=== PATIENT | female | born 1985 | race Caucasian/White ===

== ENCOUNTER 2021-11-02 07:37 | Inpatient (IN) ==
[2021-11-02] MEDS ORDERED: OXYTOCIN 30 UNITS/500 ML BAG IV PRN (07:43)
[2021-11-02 08:29] LABS: Hematocrit (blood only) 35.4 % (37-47); Hemoglobin 12.6 g/dL (12.0-16.0); Mean Corpuscular Hemoglobin 26.9 pg (25-34); Mean Corpuscular Hgb Conc 35.6 g/dL (32-36); Mean Corpuscular Volume 75.5 fL (80-100); Mean Platelet Volume 11.9 fL (7.4-10.4); Platelet Count 276 K/uL (130-400); RDW Coefficient of Variation 16.5 % (11.5-14.5); RDW Standard Deviation 45.1 fL (36.4-46.3); Red Blood Count 4.69 M/uL (4.2-5.4); White Blood Count 12.48 K/uL (4.8-10.8)
[2021-11-02] MEDS: LACTATED RINGER'S 1,000 ML IV PRN ×3 (08:40→22:02)
[2021-11-02] MEDS: OXYTOCIN 30 UNITS/500 ML BAG IV PRN (09:25)
--- NOTE | 2021-11-02 09:30 | History & Physical Report ---
Date of Service November 02, 2021 Assessment & Plan (1) Insulin controlled gestational diabetes mellitus (GDM) during : Plan: 36 y/o G1 at 40 wga presents for IOL for A2GDM VSS Fetus cat 1 Labor - will start pit GBS neg epidural PRN Admission and Anticipated Discharge Date Admission Date: November 02, 2021 History of Present Illness Chief Complaint: IOL Primary Care Provider: [facility] 36 y/o G1 at 42 wga w/ TIERRA 11/02 presents for IOL for A2GDM. +FM; denies regular ctx, LOF, VB. Had martinez bulb placed last evening but was difficult to do, remains in this AM PNI: A2GDM - 70u qHS Thyroid nodule BMI 37 Past [employer] Hx: G1 q28d cycles denies hx STIs 08/2020 neg cotest Allergies Allergy/AdvReac Type Severity Reaction Status Date / Time No Known Allergies Allergy Verified 11/01/21 13:52 Home Medications Medication Instructions Recorded Confirmed Type prenat.vits,hiro,ubv-qquv-tlytl 1 tab PO DAILY 03/03/21 11/02/21 History acetone (urine) test (Ketone Urine #50 ea 06/19/21 11/01/21 Rx Test) blood-glucose meter (OneTouch #1 ea 06/19/21 11/01/21 Rx Verio Reflect Meter) lancets 33 gauge (OneTouch Delica #150 ea 06/19/21 11/01/21 Rx Plus Lancet) pen needle, diabetic 32 gauge x #100 ea 08/18/21 11/01/21 Rx 5/32" (BD Ultra-Fine Ольга Pen Needle) blood sugar diagnostic (OneTouch #50 ea 10/27/21 11/01/21 Rx Verio test strips) insulin NPH isoph U-100 human 100 74 unit SUBCUT QPM 11/01/21 11/02/21 History unit/mL (3 mL) subcutaneous pen (Novolin N Flexpen) Patient History Surgical History H/O wisdom tooth extraction Family History (Updated 11/02/21 @ 08:00 by Alison Han, ELEUTERIO) Father Diabetes Grandfather (Paternal) Diabetes Sister Hyperthyroidism Mother Hypertension Aunt Muscular dystrophy, Duchenne Social History (Updated 11/02/21 @ 08:05 by Alison Han RN) Smoking Status: Never smoker Second Hand Exposure: No; Hx Alcohol Use: No Hx Substance Use: No Preferred Language: Maori Communication Ability: Effective Visual Impairment: Partially Limited Hearing Ability: Normal Case Coordinator Required: No Beliefs That Will Affect Care: None marital status: marital status details: Simon (34) [phone] Current Living Situation: Spouse Current Living Situation Comment: Lives with and 1 dog current occupational status: unemployed and student Other Information That Helps Us Care for You: No other: Grad student Feels Safe at Home: Yes Safety Concerns: Feels Safe At This Time Diet Comment: Diabetic diet at present Gender Identity: Female Assistive Devices: None Physical Exam Genitourinary: OB Exam Abdomen: + vertex and + estimated weight (8-9) Manual OB Exam: + cervical dilation 2 cm, + cervical effacement 50% and + station -2 OB Exam Monitor Tracing: + external FHT monitor used, + external uterine monitor used (irreg ctx) and + category I (140/mod/+accel/-decel) Martinez balloon removed from vagina Results & Data ([facility]) Vital Signs (Past 12 Hours) Vital Signs Temp Pulse Resp BP 11/02/21 08:14 98.8 F 113 H 20 138/78 11/02/21 07:48 98.8 F 113 H 20 138/78 Laboratory Results OB Labs: Blood Type O Positive 03/13/21 Antibody Screen NEGATIVE 03/13/21 Hemoglobin 12.6 g/dL (12.0-16.0) 08/14/21 Hematocrit 37.6 % (37-47) 08/14/21 Mean Corpuscular Volume 79.1 fL (80-100) L 03/13/21 Platelet Count 336 K/uL (130-400) 03/13/21 Rubella IgG Antibody Immune (Immune) 03/13/21 Rapid Plasma Reagin Nonreactive (Nonreactive) 03/13/21 Hepatitis B Surface Antigen Neg (Neg) 03/13/21 HIV (1&2) Ab and P24 Ag, 4th Gener Neg (Neg) 03/13/21 Glucose 1 Hour 50 gm Load 149 mg/dl (70-130) H 05/26/21 OB Optional Labs: Chlamydia trachomatis RNA NOT DETECTED (NOT DETECTED) 03/13/21 Neisseria gonorrhoeae RNA NOT DETECTED (NOT DETECTED) 03/13/21 Thyroid Stimulating Hormone (TSH) 0.729 uIu/ml (0.300-4.500) 04/11/21 Labs Reviewed: Normal cfDNA Normal MD screen declines afp 2hr gtt abnl--> GDM Diagnostic Findings 10/09 EFW 82%, AC 84%, ant plac Coding Level of Care Code None Diagnoses Insulin controlled gestational diabetes mellitus (GDM) during O24.414
--- NOTE | 2021-11-02 13:44 | Labor Progress Brief Note ---
Date of Service November 02, 2021 Subjective Feeling contractions Assessment & Plan (1) Insulin controlled gestational diabetes mellitus (GDM) during : Plan: 36 y/o G1 at 40 wga presents for IOL for A2GDM VSS Fetus cat 1 Labor - continue pit augmentation. Station has progressed since earlier, will try to arom with next check and hopefully a little more dilated A2GDM - q2h latent labor, q1hr active. BG ok GBS neg epidural PRN Admission and Anticipated Discharge Date Admission Date: November 02, 2021 Physical Exam Genitourinary: Manual OB Exam: + cervical dilation 2 cm, + cervical effacement 50% and + station -2 (station has progressed since last exam) OB Exam Monitor Tracing: + external FHT monitor used, + external uterine monitor used (q3-5) and + category I (140/mod/+accel/-decel) Results & Data ([facility]) Vital Signs (Past 12 Hours) Vital Signs Temp Pulse Resp BP 11/02/21 13:17 68 124/81 11/02/21 12:17 97.9 F 72 20 126/82 11/02/21 11:16 72 124/77 11/02/21 11:00 68 117/77 11/02/21 10:45 76 117/78 11/02/21 10:30 74 128/86 11/02/21 10:15 72 112/74 11/02/21 10:05 73 20 121/77 11/02/21 09:45 84 120/82 11/02/21 09:30 81 20 114/73 11/02/21 08:14 98.8 F 113 H 20 138/78 11/02/21 07:48 98.8 F 113 H 20 138/78 Coding Level of Care Code None Diagnoses Insulin controlled gestational diabetes mellitus (GDM) during O24.414
--- NOTE | 2021-11-02 19:23 | Labor Progress Brief Note ---
Date of Service November 02, 2021 Subjective Contractions becoming more uncomfortable Assessment & Plan (1) Insulin controlled gestational diabetes mellitus (GDM) during : Plan: 36 y/o G1 at 40 wga presents for IOL for A2GDM VSS Fetus cat 1 Labor - continue pit augmentation. Small progression from earlier. Discussed can take time to really get in labor, especially if there was so much difficulty with martinez bulb placement and not starting this morning as far along as planning A2GDM - q2h latent labor, q1hr active. BG ok GBS neg epidural PRN Admission and Anticipated Discharge Date Admission Date: November 02, 2021 Physical Exam Genitourinary: Manual OB Exam: + cervical dilation 3 cm, + cervical effacement (progressed from last exam) 50% and + station -2 (station has progressed since last exam) OB Exam Monitor Tracing: + external FHT monitor used, + external uterine monitor used (q3-5) and + category I (135/mod/+accel/-decel) Results & Data ([facility]) Vital Signs (Past 12 Hours) Vital Signs Temp Pulse Resp BP 11/02/21 18:55 78 126/87 11/02/21 18:17 68 139/90 11/02/21 18:00 98.2 F 20 11/02/21 17:16 62 100/55 L 11/02/21 16:30 98.2 F 11/02/21 16:16 74 131/90 11/02/21 15:18 68 119/79 11/02/21 15:00 97.9 F 20 11/02/21 14:57 67 116/82 11/02/21 14:16 68 136/85 11/02/21 13:17 68 124/81 11/02/21 12:17 97.9 F 72 20 126/82 11/02/21 11:16 72 124/77 11/02/21 11:00 68 117/77 11/02/21 10:45 76 117/78 11/02/21 10:30 74 128/86 11/02/21 10:15 72 112/74 11/02/21 10:05 73 20 121/77 11/02/21 09:45 84 120/82 11/02/21 09:30 81 20 114/73 11/02/21 08:14 98.8 F 113 H 20 138/78 11/02/21 07:48 98.8 F 113 H 20 138/78 Coding Level of Care Code None Diagnoses Insulin controlled gestational diabetes mellitus (GDM) during O24.414
[2021-11-02] MEDS ORDERED: ePHEDrine sulfate 50 MG/ML AMP ONE (21:43)
--- NOTE | 2021-11-02 21:43 | Labor Progress Brief Note ---
Date of Service November 02, 2021 Subjective Contractions becoming more uncomfortable, desires epidural Assessment & Plan (1) Insulin controlled gestational diabetes mellitus (GDM) during : Plan: 36 y/o G1 at 40 wga presents for IOL for A2GDM VSS Fetus cat 1 Labor - pit at 24, IUPC placed. Will allow pit to 30 as does not seem ctx are adequate A2GDM - q2h latent labor, q1hr active. BG ok GBS neg epidural desired Admission and Anticipated Discharge Date Admission Date: November 02, 2021 Physical Exam Genitourinary: Manual OB Exam: + cervical dilation 3 cm, + cervical effacement 60% and + station -2 (station has progressed since last exam) OB Exam Monitor Tracing: + external FHT monitor used, + external uterine monitor used (q3-5, IUPC placed) and + category I (135/mod/+accel/-decel) Results & Data ([facility]) Vital Signs (Past 12 Hours) Vital Signs Temp Pulse Resp BP 11/02/21 20:56 64 109/70 11/02/21 20:53 98.4 F 11/02/21 20:00 18 11/02/21 19:56 64 115/82 11/02/21 18:58 98.1 F 18 11/02/21 18:55 78 126/87 11/02/21 18:17 68 139/90 11/02/21 18:00 98.2 F 20 11/02/21 17:16 62 100/55 L 11/02/21 16:30 98.2 F 11/02/21 16:16 74 131/90 11/02/21 15:18 68 119/79 11/02/21 15:00 97.9 F 20 11/02/21 14:57 67 116/82 11/02/21 14:16 68 136/85 11/02/21 13:17 68 124/81 11/02/21 12:17 97.9 F 72 20 126/82 11/02/21 11:16 72 124/77 11/02/21 11:00 68 117/77 11/02/21 10:45 76 117/78 11/02/21 10:30 74 128/86 11/02/21 10:15 72 112/74 11/02/21 10:05 73 20 121/77 11/02/21 09:45 84 120/82 Coding Level of Care Code None Diagnoses Insulin controlled gestational diabetes mellitus (GDM) during O24.414
[2021-11-02] MEDS ORDERED: BUPIVACAINE 0.25% 30 ML VIAL ONE (21:44)
[2021-11-02] MEDS ORDERED: fentaNYL citrate 100 MCG/2 ML VIAL ONE (21:44)
[2021-11-02] MEDS ORDERED: SODIUM CHLORIDE 0.9% INJ 10 ML VIAL ONE (21:44)
[2021-11-02] MEDS ORDERED: fentaNYL 2MCG/ML ROPIVACAINE 1.25MG/ML 100 ML BAG EPI ONE (21:44)
--- NOTE | 2021-11-02 21:48 | Anesthesiology Consultation ---
Date of Service November 02, 2021 Assessment & Plan (1) Encounter for pre-operative examination: Chart Review Chart Review: Acceptable Risk for Labor Epidural History Height/Weight Height: 5 ft 3 in Weight: 100.788 kg Allergies Allergy/AdvReac Type Severity Reaction Status Date / Time No Known Allergies Allergy Verified 11/01/21 13:52 Medications Home Medications Medication Instructions Recorded Confirmed Last Taken prenat.vits,hiro,ype-inuz-bnggi 1 tab PO DAILY 03/03/21 11/02/21 11/01/21 08:00 acetone (urine) test (Ketone Urine #50 ea 06/19/21 11/01/21 Unknown Test) blood-glucose meter (OneTouch #1 ea 06/19/21 11/01/21 Unknown Verio Reflect Meter) lancets 33 gauge (OneTouch Delica #150 ea 06/19/21 11/01/21 Unknown Plus Lancet) pen needle, diabetic 32 gauge x #100 ea 08/18/21 11/01/21 Unknown 5/32" (BD Ultra-Fine Ольга Pen Needle) blood sugar diagnostic (OneTouch #50 ea 10/27/21 11/01/21 Unknown Verio test strips) insulin NPH isoph U-100 human 100 74 unit SUBCUT QPM 11/01/21 11/02/21 11/01/21 23:00 unit/mL (3 mL) subcutaneous pen (Novolin N Flexpen) Active Medications Generic Name Dose Route Start Last Admin Trade Name Freq PRN Reason Stop Dose Admin Oxytocin 30 units in 500 mls @ 24 mls/hr 11/02/21 07:43 11/02/21 20:45 Pitocin IV 11/04/21 07:42 1.44 units/hr .[id number] PRN 24 mls/hr Labor Induction/Augmentation Titration Protocol 1.44 UNITS/HR Lactated Ringer's 1,000 mls @ 125 mls/hr 11/02/21 07:43 11/02/21 16:36 Lr IV 11/04/21 07:42 125 mls/hr .Q8H PRN Administration L&D Protocol Protocol Past Medical History Medical History (Updated 11/02/21 @ 21:48 by Aubrey Flower MD) Obesity Past Family History Family History Father Diabetes Grandfather (Paternal) Diabetes Sister Hyperthyroidism Mother Hypertension Aunt Muscular dystrophy, Duchenne Past Surgical History Surgical History H/O wisdom tooth extraction Social History Smoking Status: Never smoker Hx Alcohol Use: No Hx Substance Use: No substance use type: does not use Physical Exam Vital Signs Last Vital Signs Temp 36.9 C 11/02/21 20:53 Pulse 61 11/02/21 21:45 Resp 18 11/02/21 20:00 BP 109/70 11/02/21 20:56 Pulse Ox 100 11/02/21 21:45 Testing Laboratory Results 11/02/21 08:10 Blood Type O Positive 11/02/21 08:10 Antibody Screen NEGATIVE 11/02/21 08:10 11/02/21 11/02/21 11/02/21 20:03 18:07 16:06 POC Glucose 74 75 64 L* 11/02/21 11/02/21 11/02/21 14:05 12:20 10:19 POC Glucose 70 66 L* 70 11/02/21 10:17 POC Glucose 65 L*
[2021-11-02] MEDS ORDERED: NALOXONE HCL 0.4 MG/1 ML VIAL/CARP IV PRN (22:37)
[2021-11-02] MEDS ORDERED: NALOXONE HCL 1 MG in SODIUM CHLORIDE 0.9% 1000ML 1,000 ML IV PRN (22:37)
[2021-11-02] MEDS ORDERED: ONDANSETRON INJ 2 MG/ML 2 ML VIAL IV PRN (22:37)
[2021-11-02] MEDS ORDERED: ePHEDrine sulfate 50 MG/ML AMP IV PRN (22:37)
--- NOTE | 2021-11-03 00:02 | Labor Progress Brief Note ---
Date of Service November 03, 2021 Subjective Comfortable w/ epidural Assessment & Plan (1) Insulin controlled gestational diabetes mellitus (GDM) during : Plan: 36 y/o G1 at 40 wga presents for IOL for A2GDM VSS Fetus cat 1 Labor - pit at 30, progressing since last exam with epidural. Will continue pit at 30 for now, if sve unchanged next time then will pit break A2GDM - q2h latent labor, q1hr active. BG ok thus far GBS neg epidural in place Admission and Anticipated Discharge Date Admission Date: November 02, 2021 Physical Exam Genitourinary: Manual OB Exam: + cervical dilation (3-4), + cervical effacement 60% and + station -2 (station has progressed since last exam) OB Exam Monitor Tracing: + external FHT monitor used, + intra-uterine pressure catheter used (q3) and + category I (135/mod/+accel/-decel) Results & Data ([facility]) Vital Signs (Past 12 Hours) Vital Signs Temp Pulse Resp BP Pulse Ox 11/02/21 23:58 68 98 11/02/21 23:53 65 97 11/02/21 23:48 67 96 11/02/21 23:45 82 107/63 11/02/21 23:43 61 96 11/02/21 23:38 57 L 94 11/02/21 23:37 58 L 94 11/02/21 23:33 62 96 11/02/21 23:31 67 109/67 11/02/21 23:30 16 11/02/21 23:28 70 96 11/02/21 23:23 63 96 11/02/21 23:18 67 97 11/02/21 23:17 67 100/59 L 11/02/21 23:13 66 96 11/02/21 23:08 68 95 11/02/21 23:03 75 96 11/02/21 23:00 65 20 90/52 L 11/02/21 22:58 64 96 11/02/21 22:57 64 86/51 L 11/02/21 22:53 71 96 11/02/21 22:52 63 90/53 L 11/02/21 22:48 74 96 11/02/21 22:46 70 92/50 L 11/02/21 22:45 20 11/02/21 22:43 72 96 11/02/21 22:40 87 20 101/58 L 11/02/21 22:38 84 105/59 L 96 11/02/21 22:36 91 H 93/55 L 11/02/21 22:35 20 11/02/21 22:34 79 110/58 L 11/02/21 22:33 60 98 11/02/21 22:32 98 H 98/53 L 94 11/02/21 22:30 98.4 F 75 20 110/66 11/02/21 22:28 72 118/68 98 11/02/21 22:26 75 140/82 11/02/21 22:23 82 99 11/02/21 22:18 80 100 11/02/21 22:13 99 H 96 11/02/21 22:12 143 H 83 L 11/02/21 22:05 66 98 11/02/21 22:00 69 98 11/02/21 21:58 20 11/02/21 21:55 61 135/86 98 11/02/21 21:50 83 100 11/02/21 21:45 61 100 11/02/21 21:44 68 94 11/02/21 21:40 68 99 11/02/21 21:29 18 11/02/21 20:56 64 109/70 11/02/21 20:53 98.4 F 11/02/21 20:00 18 11/02/21 19:56 64 115/82 11/02/21 18:58 98.1 F 18 11/02/21 18:55 78 126/87 11/02/21 18:17 68 139/90 11/02/21 18:00 98.2 F 20 11/02/21 17:16 62 100/55 L 11/02/21 16:30 98.2 F 11/02/21 16:16 74 131/90 11/02/21 15:18 68 119/79 11/02/21 15:00 97.9 F 20 11/02/21 14:57 67 116/82 11/02/21 14:16 68 136/85 11/02/21 13:17 68 124/81 11/02/21 12:17 97.9 F 72 20 126/82 Coding Level of Care Code None Diagnoses Insulin controlled gestational diabetes mellitus (GDM) during O24.414
[2021-11-03] MEDS: LACTATED RINGER'S 1,000 ML IV PRN ×3 (05:32→16:49)
--- NOTE | 2021-11-03 07:13 | Labor Progress Brief Note ---
Date of Service November 03, 2021 Subjective Comfortable w/ epidural Assessment & Plan (1) Insulin controlled gestational diabetes mellitus (GDM) during : Plan: 36 y/o G1 at 40 wga presents for IOL for A2GDM VSS Fetus cat 1 Labor - had pit break overnight, pit back at 14. Station has come down considerably, will continue induction A2GDM - q2h latent labor, q1hr active. BG ok thus far GBS neg epidural in place Admission and Anticipated Discharge Date Admission Date: November 02, 2021 Physical Exam Genitourinary: Manual OB Exam: + cervical dilation 4 cm, + cervical effacement 60% and + station -2 and -1 OB Exam Monitor Tracing: + external FHT monitor used, + intra-uterine pressure catheter used (q3) and + category I (140/mod/+accel/-decel) Results & Data ([facility]) Vital Signs (Past 12 Hours) Vital Signs Temp Pulse Resp BP Pulse Ox 11/03/21 07:08 70 97 11/03/21 07:03 78 97 11/03/21 07:01 68 107/70 11/03/21 06:58 70 97 11/03/21 06:53 84 97 11/03/21 06:48 88 98 11/03/21 06:46 78 107/66 11/03/21 06:43 103 H 96 11/03/21 06:38 66 94 11/03/21 06:33 70 95 11/03/21 06:30 98.2 F 56 L 18 97/58 L 11/03/21 06:28 56 L 94 11/03/21 06:23 55 L 94 11/03/21 06:18 56 L 93 11/03/21 06:15 58 L 91/56 L 11/03/21 06:13 54 L 93 11/03/21 06:08 54 L 94 11/03/21 06:03 56 L 95 11/03/21 06:01 57 L 97/56 L 11/03/21 06:00 16 11/03/21 05:58 55 L 95 11/03/21 05:53 58 L 95 11/03/21 05:48 61 96 11/03/21 05:47 58 L 104/60 11/03/21 05:43 64 95 11/03/21 05:38 62 95 11/03/21 05:33 73 96 11/03/21 05:31 82 111/69 11/03/21 05:30 18 11/03/21 05:28 93 H 95 11/03/21 05:23 61 94 11/03/21 05:18 60 94 11/03/21 05:15 62 92/55 L 11/03/21 05:13 60 94 11/03/21 05:08 62 94 11/03/21 05:03 59 L 94 11/03/21 05:00 67 16 87/54 L 11/03/21 04:58 59 L 94 11/03/21 04:53 60 95 11/03/21 04:48 64 96 11/03/21 04:46 64 83/51 L 11/03/21 04:43 71 95 11/03/21 04:38 73 96 11/03/21 04:33 72 97 11/03/21 04:31 98.2 F 18 11/03/21 04:30 75 96/56 L 11/03/21 04:28 83 96 11/03/21 04:23 95 H 95 11/03/21 04:18 62 94 11/03/21 04:16 61 87/49 L 11/03/21 04:13 62 94 11/03/21 04:08 62 94 11/03/21 04:03 70 94 11/03/21 04:00 71 18 96/51 L 11/03/21 03:58 64 94 11/03/21 03:53 73 94 11/03/21 03:48 63 93 11/03/21 03:46 68 94/51 L 11/03/21 03:43 66 93 11/03/21 03:38 64 93 11/03/21 03:33 66 93 11/03/21 03:31 63 94 11/03/21 03:30 74 18 100/53 L 11/03/21 03:28 75 93 11/03/21 03:23 59 L 94 11/03/21 03:18 63 94 11/03/21 03:17 61 94 11/03/21 03:15 67 86/48 L 11/03/21 03:13 62 94 11/03/21 03:08 60 94 11/03/21 03:07 60 94 11/03/21 03:03 63 93 11/03/21 03:00 68 18 84/53 L 11/03/21 02:58 62 93 11/03/21 02:53 64 95 11/03/21 02:48 58 L 93 11/03/21 02:46 67 94 11/03/21 02:45 69 98/56 L 11/03/21 02:43 61 94 11/03/21 02:40 60 93 11/03/21 02:38 61 94 11/03/21 02:33 62 95 11/03/21 02:32 59 L 94 11/03/21 02:31 56 L 85/49 L 11/03/21 02:30 98.1 F 20 11/03/21 02:28 59 L 94 11/03/21 02:24 57 L 94 11/03/21 02:23 64 95 11/03/21 02:19 65 94 11/03/21 02:18 66 95 11/03/21 02:15 65 100/57 L 11/03/21 02:13 66 96 11/03/21 02:08 71 95 11/03/21 02:03 72 95 11/03/21 02:00 67 20 98/57 L 11/03/21 01:58 72 96 11/03/21 01:53 66 95 11/03/21 01:48 66 95 11/03/21 01:45 63 93/54 L 11/03/21 01:44 66 94 11/03/21 01:43 65 95 11/03/21 01:38 62 94 11/03/21 01:33 57 L 94 11/03/21 01:31 53 L 92/53 L 11/03/21 01:30 18 11/03/21 01:28 58 L 94 11/03/21 01:26 56 L 94 11/03/21 01:23 58 L 94 11/03/21 01:19 58 L 94 11/03/21 01:18 68 95 11/03/21 01:16 57 L 92/55 L 11/03/21 01:14 65 94 11/03/21 01:13 64 94 11/03/21 01:08 89 95 11/03/21 01:03 75 96 11/03/21 01:00 98.1 F 72 18 120/72 11/03/21 00:58 69 96 11/03/21 00:53 74 96 11/03/21 00:48 70 96 11/03/21 00:46 67 106/65 11/03/21 00:43 74 96 11/03/21 00:38 71 96 11/03/21 00:33 72 96 11/03/21 00:30 70 112/70 11/03/21 00:28 69 96 11/03/21 00:23 73 96 11/03/21 00:18 71 97 11/03/21 00:15 60 112/71 11/03/21 00:13 66 97 11/03/21 00:10 98.1 F 11/03/21 00:08 79 97 11/03/21 00:03 64 97 11/03/21 00:00 67 18 114/73 11/02/21 23:58 68 98 11/02/21 23:53 65 97 11/02/21 23:48 67 96 11/02/21 23:45 82 107/63 11/02/21 23:43 61 96 11/02/21 23:38 57 L 94 11/02/21 23:37 58 L 94 11/02/21 23:33 62 96 11/02/21 23:31 67 109/67 11/02/21 23:30 16 11/02/21 23:28 70 96 11/02/21 23:23 63 96 11/02/21 23:18 67 97 11/02/21 23:17 67 100/59 L 11/02/21 23:13 66 96 11/02/21 23:08 68 95 11/02/21 23:03 75 96 11/02/21 23:00 65 20 90/52 L 11/02/21 22:58 64 96 11/02/21 22:57 64 86/51 L 11/02/21 22:53 71 96 11/02/21 22:52 63 90/53 L 11/02/21 22:48 74 96 11/02/21 22:46 70 92/50 L 11/02/21 22:45 20 11/02/21 22:43 72 96 11/02/21 22:40 87 20 101/58 L 11/02/21 22:38 84 105/59 L 96 11/02/21 22:36 91 H 93/55 L 11/02/21 22:35 20 11/02/21 22:34 79 110/58 L 11/02/21 22:33 60 98 11/02/21 22:32 98 H 98/53 L 94 11/02/21 22:30 98.4 F 75 20 110/66 11/02/21 22:28 72 118/68 98 11/02/21 22:26 75 140/82 11/02/21 22:23 82 99 11/02/21 22:18 80 100 11/02/21 22:13 99 H 96 11/02/21 22:12 143 H 83 L 11/02/21 22:05 66 98 11/02/21 22:00 69 98 11/02/21 21:58 20 11/02/21 21:55 61 135/86 98 11/02/21 21:50 83 100 11/02/21 21:45 61 100 11/02/21 21:44 68 94 11/02/21 21:40 68 99 11/02/21 21:29 18 11/02/21 20:56 64 109/70 11/02/21 20:53 98.4 F 11/02/21 20:00 18 11/02/21 19:56 64 115/82 Coding Level of Care Code None Diagnoses Insulin controlled gestational diabetes mellitus (GDM) during O24.414
[2021-11-03] MEDS: OXYTOCIN 30 UNITS/500 ML BAG IV PRN (07:15)
[2021-11-03] MEDS: fentaNYL 2MCG/ML ROPIVACAINE 1.25MG/ML 100 ML BAG EPI PRN ×3 (08:30→20:49)
--- NOTE | 2021-11-03 08:40 | Labor Progress Brief Note ---
Date of Service November 03, 2021 Subjective pt comfortable Assessment & Plan (1) Insulin controlled gestational diabetes mellitus (GDM) during : (2) Obesity: Plan: no significant cx change but mvu's inadequate. fhts categ 1. cont to increase pit to achieve adequate mvu's. pt aware i am assuming care. discussed not in labor yet. Admission and Anticipated Discharge Date Admission Date: November 02, 2021 Physical Exam Constitutional: WD/WN, vitals as above Genitourinary: Manual OB Exam: + cervical dilation (3-4), + cervical effacement 80% and + station -2 OB Exam Monitor Tracing: + external FHT monitor used, + external uterine monitor used (q2-4 mvus inadeq), + category I and + normal FHT variability pit at 18 Results & Data ([facility]) Vital Signs (Past 12 Hours) Vital Signs Temp Pulse Resp BP Pulse Ox 11/03/21 08:33 81 100 11/03/21 08:31 83 103/63 11/03/21 08:28 70 99 11/03/21 08:23 72 97 11/03/21 08:18 75 96 11/03/21 08:17 76 101/62 11/03/21 08:13 84 98 11/03/21 08:08 90 99 11/03/21 08:03 84 97 11/03/21 08:00 78 118/76 11/03/21 07:58 80 98 11/03/21 07:53 71 97 11/03/21 07:48 68 98 11/03/21 07:45 98.2 F 67 20 114/71 11/03/21 07:43 74 98 11/03/21 07:38 72 98 11/03/21 07:33 84 98 11/03/21 07:31 85 20 119/70 11/03/21 07:28 77 99 11/03/21 07:23 88 97 11/03/21 07:22 85 131/69 11/03/21 07:18 86 99 11/03/21 07:15 20 11/03/21 07:13 76 97 11/03/21 07:08 70 97 11/03/21 07:03 78 97 11/03/21 07:01 68 107/70 11/03/21 06:58 70 97 11/03/21 06:53 84 97 11/03/21 06:48 88 98 11/03/21 06:46 78 107/66 11/03/21 06:43 103 H 96 11/03/21 06:38 66 94 11/03/21 06:33 70 95 11/03/21 06:30 98.2 F 56 L 18 97/58 L 11/03/21 06:28 56 L 94 11/03/21 06:23 55 L 94 11/03/21 06:18 56 L 93 11/03/21 06:15 58 L 91/56 L 11/03/21 06:13 54 L 93 11/03/21 06:08 54 L 94 11/03/21 06:03 56 L 95 11/03/21 06:01 57 L 97/56 L 11/03/21 06:00 16 11/03/21 05:58 55 L 95 11/03/21 05:53 58 L 95 11/03/21 05:48 61 96 11/03/21 05:47 58 L 104/60 11/03/21 05:43 64 95 11/03/21 05:38 62 95 11/03/21 05:33 73 96 11/03/21 05:31 82 111/69 11/03/21 05:30 18 11/03/21 05:28 93 H 95 11/03/21 05:23 61 94 11/03/21 05:18 60 94 11/03/21 05:15 62 92/55 L 11/03/21 05:13 60 94 11/03/21 05:08 62 94 11/03/21 05:03 59 L 94 11/03/21 05:00 67 16 87/54 L 11/03/21 04:58 59 L 94 11/03/21 04:53 60 95 11/03/21 04:48 64 96 11/03/21 04:46 64 83/51 L 11/03/21 04:43 71 95 11/03/21 04:38 73 96 11/03/21 04:33 72 97 11/03/21 04:31 98.2 F 18 11/03/21 04:30 75 96/56 L 11/03/21 04:28 83 96 11/03/21 04:23 95 H 95 11/03/21 04:18 62 94 11/03/21 04:16 61 87/49 L 11/03/21 04:13 62 94 11/03/21 04:08 62 94 11/03/21 04:03 70 94 11/03/21 04:00 71 18 96/51 L 11/03/21 03:58 64 94 11/03/21 03:53 73 94 11/03/21 03:48 63 93 11/03/21 03:46 68 94/51 L 11/03/21 03:43 66 93 11/03/21 03:38 64 93 11/03/21 03:33 66 93 11/03/21 03:31 63 94 11/03/21 03:30 74 18 100/53 L 11/03/21 03:28 75 93 11/03/21 03:23 59 L 94 11/03/21 03:18 63 94 11/03/21 03:17 61 94 11/03/21 03:15 67 86/48 L 11/03/21 03:13 62 94 11/03/21 03:08 60 94 11/03/21 03:07 60 94 11/03/21 03:03 63 93 11/03/21 03:00 68 18 84/53 L 11/03/21 02:58 62 93 11/03/21 02:53 64 95 11/03/21 02:48 58 L 93 11/03/21 02:46 67 94 11/03/21 02:45 69 98/56 L 11/03/21 02:43 61 94 11/03/21 02:40 60 93 11/03/21 02:38 61 94 11/03/21 02:33 62 95 11/03/21 02:32 59 L 94 11/03/21 02:31 56 L 85/49 L 11/03/21 02:30 98.1 F 20 11/03/21 02:28 59 L 94 11/03/21 02:24 57 L 94 11/03/21 02:23 64 95 11/03/21 02:19 65 94 11/03/21 02:18 66 95 11/03/21 02:15 65 100/57 L 11/03/21 02:13 66 96 11/03/21 02:08 71 95 11/03/21 02:03 72 95 11/03/21 02:00 67 20 98/57 L 11/03/21 01:58 72 96 11/03/21 01:53 66 95 11/03/21 01:48 66 95 11/03/21 01:45 63 93/54 L 11/03/21 01:44 66 94 11/03/21 01:43 65 95 11/03/21 01:38 62 94 11/03/21 01:33 57 L 94 11/03/21 01:31 53 L 92/53 L 11/03/21 01:30 18 11/03/21 01:28 58 L 94 11/03/21 01:26 56 L 94 11/03/21 01:23 58 L 94 11/03/21 01:19 58 L 94 11/03/21 01:18 68 95 11/03/21 01:16 57 L 92/55 L 11/03/21 01:14 65 94 11/03/21 01:13 64 94 11/03/21 01:08 89 95 11/03/21 01:03 75 96 11/03/21 01:00 98.1 F 72 18 120/72 11/03/21 00:58 69 96 11/03/21 00:53 74 96 11/03/21 00:48 70 96 11/03/21 00:46 67 106/65 11/03/21 00:43 74 96 11/03/21 00:38 71 96 11/03/21 00:33 72 96 11/03/21 00:30 70 112/70 11/03/21 00:28 69 96 11/03/21 00:23 73 96 11/03/21 00:18 71 97 11/03/21 00:15 60 112/71 11/03/21 00:13 66 97 11/03/21 00:10 98.1 F 11/03/21 00:08 79 97 11/03/21 00:03 64 97 11/03/21 00:00 67 18 114/73 11/02/21 23:58 68 98 11/02/21 23:53 65 97 11/02/21 23:48 67 96 11/02/21 23:45 82 107/63 11/02/21 23:43 61 96 11/02/21 23:38 57 L 94 11/02/21 23:37 58 L 94 11/02/21 23:33 62 96 11/02/21 23:31 67 109/67 11/02/21 23:30 16 11/02/21 23:28 70 96 11/02/21 23:23 63 96 11/02/21 23:18 67 97 11/02/21 23:17 67 100/59 L 11/02/21 23:13 66 96 11/02/21 23:08 68 95 11/02/21 23:03 75 96 11/02/21 23:00 65 20 90/52 L 11/02/21 22:58 64 96 11/02/21 22:57 64 86/51 L 11/02/21 22:53 71 96 11/02/21 22:52 63 90/53 L 11/02/21 22:48 74 96 11/02/21 22:46 70 92/50 L 11/02/21 22:45 20 11/02/21 22:43 72 96 11/02/21 22:40 87 20 101/58 L 11/02/21 22:38 84 105/59 L 96 11/02/21 22:36 91 H 93/55 L 11/02/21 22:35 20 11/02/21 22:34 79 110/58 L 11/02/21 22:33 60 98 11/02/21 22:32 98 H 98/53 L 94 11/02/21 22:30 98.4 F 75 20 110/66 11/02/21 22:28 72 118/68 98 11/02/21 22:26 75 140/82 11/02/21 22:23 82 99 11/02/21 22:18 80 100 11/02/21 22:13 99 H 96 11/02/21 22:12 143 H 83 L 11/02/21 22:05 66 98 11/02/21 22:00 69 98 11/02/21 21:58 20 11/02/21 21:55 61 135/86 98 11/02/21 21:50 83 100 11/02/21 21:45 61 100 11/02/21 21:44 68 94 11/02/21 21:40 68 99 11/02/21 21:29 18 11/02/21 20:56 64 109/70 11/02/21 20:53 98.4 F Coding Level of Care Code None Diagnoses Insulin controlled gestational diabetes mellitus (GDM) during O24.414 Obesity E66.9
--- NOTE | 2021-11-03 12:44 | Labor Progress Brief Note ---
Date of Service November 03, 2021 Subjective comfortable, bsg 111 Assessment & Plan (1) Insulin controlled gestational diabetes mellitus (GDM) during : (2) Obesity: Plan: no significant cx change. fhts categ 1. will halve pit and allow washout and then try to increase pit for adeq mvu's Admission and Anticipated Discharge Date Admission Date: November 02, 2021 Physical Exam Constitutional: WD/WN, vitals as above Genitourinary: Manual OB Exam: + cervical dilation 4 cm, + cervical effacement 80% and + station -2 OB Exam Monitor Tracing: + external FHT monitor used, + intra-uterine pressure catheter used (inadeq mvu's, pit at 30), + category I and + normal FHT variability Results & Data ([facility]) Vital Signs (Past 12 Hours) Vital Signs Temp Pulse Resp BP Pulse Ox 11/03/21 12:38 79 100 11/03/21 12:33 79 100 11/03/21 12:30 74 110/63 11/03/21 12:28 74 100 11/03/21 12:23 72 100 11/03/21 12:18 71 100 11/03/21 12:17 67 111/59 L 11/03/21 12:13 65 99 11/03/21 12:08 65 99 11/03/21 12:03 73 99 11/03/21 12:01 68 111/61 11/03/21 11:58 71 99 11/03/21 11:53 72 99 11/03/21 11:48 70 98 11/03/21 11:47 72 100/56 L 11/03/21 11:43 79 98 11/03/21 11:38 66 98 11/03/21 11:33 61 96 11/03/21 11:31 98.4 F 67 20 112/59 L 11/03/21 11:28 69 99 11/03/21 11:23 67 97 11/03/21 11:18 60 97 11/03/21 11:16 63 112/58 L 11/03/21 11:15 20 11/03/21 11:13 64 98 11/03/21 11:08 59 L 96 11/03/21 11:03 61 97 11/03/21 11:00 60 101/57 L 11/03/21 10:58 64 98 11/03/21 10:53 61 98 04/01/22 10:48 66 97 11/03/21 10:46 75 99/59 L 11/03/21 10:45 18 11/03/21 10:43 71 97 11/03/21 10:38 89 97 11/03/21 10:33 66 97 11/03/21 10:32 63 115/72 11/03/21 10:31 18 11/03/21 10:28 60 96 11/03/21 10:23 62 98 11/03/21 10:18 63 97 11/03/21 10:15 59 L 18 99/65 L 11/03/21 10:13 59 L 95 11/03/21 10:08 66 97 11/03/21 10:03 63 97 11/03/21 10:01 20 11/03/21 10:00 59 L 102/67 11/03/21 09:58 59 L 96 11/03/21 09:53 68 95 11/03/21 09:48 64 97 11/03/21 09:46 59 L 106/67 11/03/21 09:45 20 11/03/21 09:43 63 97 11/03/21 09:38 71 96 11/03/21 09:33 63 97 11/03/21 09:31 61 108/61 11/03/21 09:28 67 97 11/03/21 09:26 98.6 F 20 11/03/21 09:23 65 97 11/03/21 09:18 67 96 11/03/21 09:16 63 106/67 11/03/21 09:15 20 11/03/21 09:13 61 98 11/03/21 09:08 62 96 11/03/21 09:03 65 98 11/03/21 09:02 62 106/69 11/03/21 09:01 20 11/03/21 08:58 61 95 11/03/21 08:53 64 96 11/03/21 08:48 63 96 11/03/21 08:46 63 111/77 11/03/21 08:45 20 11/03/21 08:43 69 97 11/03/21 08:38 84 97 11/03/21 08:33 81 100 11/03/21 08:31 83 20 103/63 11/03/21 08:28 70 99 11/03/21 08:23 72 97 11/03/21 08:18 75 96 11/03/21 08:17 76 101/62 11/03/21 08:15 20 11/03/21 08:13 84 98 11/03/21 08:08 90 99 11/03/21 08:03 84 97 11/03/21 08:01 20 11/03/21 08:00 78 118/76 11/03/21 07:58 80 98 11/03/21 07:53 71 97 11/03/21 07:48 68 98 11/03/21 07:45 98.2 F 67 20 114/71 11/03/21 07:43 74 98 11/03/21 07:38 72 98 11/03/21 07:33 84 98 11/03/21 07:31 85 20 119/70 11/03/21 07:28 77 99 11/03/21 07:23 88 97 11/03/21 07:22 85 131/69 11/03/21 07:18 86 99 11/03/21 07:15 20 11/03/21 07:13 76 97 11/03/21 07:08 70 97 11/03/21 07:03 78 97 11/03/21 07:01 68 107/70 11/03/21 06:58 70 97 11/03/21 06:53 84 97 11/03/21 06:48 88 98 11/03/21 06:46 78 107/66 11/03/21 06:43 103 H 96 11/03/21 06:38 66 94 11/03/21 06:33 70 95 11/03/21 06:30 98.2 F 56 L 18 97/58 L 11/03/21 06:28 56 L 94 11/03/21 06:23 55 L 94 11/03/21 06:18 56 L 93 11/03/21 06:15 58 L 91/56 L 11/03/21 06:13 54 L 93 11/03/21 06:08 54 L 94 11/03/21 06:03 56 L 95 11/03/21 06:01 57 L 97/56 L 11/03/21 06:00 16 11/03/21 05:58 55 L 95 11/03/21 05:53 58 L 95 11/03/21 05:48 61 96 11/03/21 05:47 58 L 104/60 11/03/21 05:43 64 95 11/03/21 05:38 62 95 11/03/21 05:33 73 96 11/03/21 05:31 82 111/69 11/03/21 05:30 18 11/03/21 05:28 93 H 95 11/03/21 05:23 61 94 11/03/21 05:18 60 94 11/03/21 05:15 62 92/55 L 11/03/21 05:13 60 94 11/03/21 05:08 62 94 11/03/21 05:03 59 L 94 11/03/21 05:00 67 16 87/54 L 11/03/21 04:58 59 L 94 11/03/21 04:53 60 95 11/03/21 04:48 64 96 11/03/21 04:46 64 83/51 L 11/03/21 04:43 71 95 11/03/21 04:38 73 96 11/03/21 04:33 72 97 11/03/21 04:31 98.2 F 18 11/03/21 04:30 75 96/56 L 11/03/21 04:28 83 96 11/03/21 04:23 95 H 95 11/03/21 04:18 62 94 11/03/21 04:16 61 87/49 L 11/03/21 04:13 62 94 11/03/21 04:08 62 94 11/03/21 04:03 70 94 11/03/21 04:00 71 18 96/51 L 11/03/21 03:58 64 94 11/03/21 03:53 73 94 11/03/21 03:48 63 93 11/03/21 03:46 68 94/51 L 11/03/21 03:43 66 93 11/03/21 03:38 64 93 11/03/21 03:33 66 93 11/03/21 03:31 63 94 11/03/21 03:30 74 18 100/53 L 11/03/21 03:28 75 93 11/03/21 03:23 59 L 94 11/03/21 03:18 63 94 11/03/21 03:17 61 94 11/03/21 03:15 67 86/48 L 11/03/21 03:13 62 94 11/03/21 03:08 60 94 11/03/21 03:07 60 94 11/03/21 03:03 63 93 11/03/21 03:00 68 18 84/53 L 11/03/21 02:58 62 93 11/03/21 02:53 64 95 11/03/21 02:48 58 L 93 11/03/21 02:46 67 94 11/03/21 02:45 69 98/56 L 11/03/21 02:43 61 94 11/03/21 02:40 60 93 11/03/21 02:38 61 94 11/03/21 02:33 62 95 11/03/21 02:32 59 L 94 11/03/21 02:31 56 L 85/49 L 11/03/21 02:30 98.1 F 20 11/03/21 02:28 59 L 94 11/03/21 02:24 57 L 94 11/03/21 02:23 64 95 11/03/21 02:19 65 94 11/03/21 02:18 66 95 11/03/21 02:15 65 100/57 L 11/03/21 02:13 66 96 11/03/21 02:08 71 95 11/03/21 02:03 72 95 11/03/21 02:00 67 20 98/57 L 11/03/21 01:58 72 96 11/03/21 01:53 66 95 11/03/21 01:48 66 95 11/03/21 01:45 63 93/54 L 11/03/21 01:44 66 94 11/03/21 01:43 65 95 11/03/21 01:38 62 94 11/03/21 01:33 57 L 94 11/03/21 01:31 53 L 92/53 L 11/03/21 01:30 18 11/03/21 01:28 58 L 94 11/03/21 01:26 56 L 94 11/03/21 01:23 58 L 94 11/03/21 01:19 58 L 94 11/03/21 01:18 68 95 11/03/21 01:16 57 L 92/55 L 11/03/21 01:14 65 94 11/03/21 01:13 64 94 11/03/21 01:08 89 95 11/03/21 01:03 75 96 11/03/21 01:00 98.1 F 72 18 120/72 11/03/21 00:58 69 96 11/03/21 00:53 74 96 11/03/21 00:48 70 96 11/03/21 00:46 67 106/65 11/03/21 00:43 74 96 Coding Level of Care Code None Diagnoses Insulin controlled gestational diabetes mellitus (GDM) during O24.414 Obesity E66.9
[2021-11-03] MEDS ORDERED: NURSING L&D Epidural Breakthrough Pain Update ONE (15:17)
--- NOTE | 2021-11-03 18:46 | Labor Progress Brief Note ---
Date of Service November 03, 2021 Subjective feels comfortable Assessment & Plan (1) Insulin controlled gestational diabetes mellitus (GDM) during : (2) Obesity: Plan: good cx change. pit at 30. mvu's inadeq but making cx change. options to stay with current pit dose or increase pit max to 40. se, risks reviewed. fhts categ 1. iupc replaced to see if ctx were stronger than were appearing with prior iupc but pretty much the same. pt and partner aware of options. questions answered, they will consider if they want to try more pitocin or stay with current dose. reeval cx in about 2 hr. Admission and Anticipated Discharge Date Admission Date: November 02, 2021 Physical Exam Constitutional: WD/WN, vitals as above Genitourinary: Manual OB Exam: + amniotic fluid meconium (? mec stained fluid seen when placing new iupc) OB Exam Monitor Tracing: + external FHT monitor used, + intra-uterine pressure catheter used (iupc replaced, inadeq mvus, ctx q1.5-2), + category I and + normal FHT variability Results & Data ([facility]) Vital Signs (Past 12 Hours) Vital Signs Temp Pulse Resp BP Pulse Ox 11/03/21 18:38 93 H 99 11/03/21 18:33 94 H 98 11/03/21 18:32 92 H 121/72 11/03/21 18:28 103 H 100 11/03/21 18:23 104 H 98 11/03/21 18:18 84 100 11/03/21 18:15 76 103/57 L 11/03/21 18:13 90 98 11/03/21 18:08 95 H 100 11/03/21 18:03 88 99 11/03/21 18:01 83 20 103/55 L 11/03/21 17:58 84 100 11/03/21 17:53 82 100 11/03/21 17:48 85 100 11/03/21 17:45 84 100/58 L 11/03/21 17:43 73 98 11/03/21 17:38 73 99 11/03/21 17:33 79 99 11/03/21 17:31 74 20 106/55 L 11/03/21 17:28 73 99 11/03/21 17:23 75 98 11/03/21 17:18 93 H 99 11/03/21 17:17 69 113/56 L 11/03/21 17:13 72 97 11/03/21 17:08 66 97 11/03/21 17:03 70 99 11/03/21 17:01 65 106/56 L 11/03/21 16:58 78 99 11/03/21 16:53 73 99 11/03/21 16:48 70 99 11/03/21 16:46 67 110/61 11/03/21 16:43 77 98 11/03/21 16:38 69 97 11/03/21 16:33 75 97 11/03/21 16:31 98.4 F 71 20 121/75 11/03/21 16:28 71 97 11/03/21 16:23 71 99 11/03/21 16:18 76 98 11/03/21 16:16 75 115/75 11/03/21 16:13 75 99 11/03/21 16:08 76 98 11/03/21 16:03 74 98 11/03/21 16:01 20 11/03/21 16:00 71 114/74 11/03/21 15:58 69 98 11/03/21 15:53 67 99 11/03/21 15:48 75 99 11/03/21 15:46 68 116/71 11/03/21 15:43 70 99 11/03/21 15:38 78 97 11/03/21 15:33 86 97 11/03/21 15:32 89 122/67 11/03/21 15:31 20 11/03/21 15:28 82 98 11/03/21 15:23 65 98 11/03/21 15:18 67 98 11/03/21 15:17 67 90/54 L 11/03/21 15:13 68 98 11/03/21 15:08 63 99 11/03/21 15:03 72 100 11/03/21 15:02 71 103/58 L 11/03/21 15:01 18 11/03/21 14:58 69 100 11/03/21 14:53 74 100 11/03/21 14:48 73 100 11/03/21 14:46 68 104/60 11/03/21 14:43 69 100 11/03/21 14:38 71 100 11/03/21 14:33 72 100 11/03/21 14:31 98.2 F 82 20 123/69 11/03/21 14:28 81 100 11/03/21 14:23 94 H 100 11/03/21 14:18 94 H 99 11/03/21 14:15 83 117/76 11/03/21 14:13 81 100 11/03/21 14:08 98 H 100 11/03/21 14:03 91 H 100 11/03/21 14:02 79 105/62 11/03/21 13:58 84 99 11/03/21 13:53 84 100 11/03/21 13:48 85 99 11/03/21 13:47 84 118/75 11/03/21 13:43 87 99 11/03/21 13:38 84 100 11/03/21 13:33 97 H 99 11/03/21 13:31 93 H 20 128/79 11/03/21 13:30 98.2 F 11/03/21 13:28 93 H 98 11/03/21 13:23 93 H 99 11/03/21 13:18 90 100 11/03/21 13:16 83 111/74 11/03/21 13:13 89 99 11/03/21 13:08 83 98 11/03/21 13:03 88 97 11/03/21 13:02 98 H 123/77 11/03/21 13:01 20 11/03/21 12:58 94 H 97 11/03/21 12:53 96 H 97 11/03/21 12:48 95 H 98 11/03/21 12:45 83 114/69 11/03/21 12:43 87 99 11/03/21 12:38 79 100 11/03/21 12:33 79 100 11/03/21 12:31 20 11/03/21 12:30 74 110/63 11/03/21 12:28 74 100 11/03/21 12:23 72 100 11/03/21 12:18 71 100 11/03/21 12:17 67 111/59 L 11/03/21 12:13 65 99 11/03/21 12:08 65 99 11/03/21 12:03 73 99 11/03/21 12:01 68 20 111/61 11/03/21 11:58 71 99 11/03/21 11:53 72 99 11/03/21 11:48 70 98 11/03/21 11:47 72 100/56 L 11/03/21 11:45 20 11/03/21 11:43 79 98 11/03/21 11:38 66 98 11/03/21 11:33 61 96 11/03/21 11:31 98.4 F 67 20 112/59 L 11/03/21 11:28 69 99 11/03/21 11:23 67 97 11/03/21 11:18 60 97 11/03/21 11:16 63 112/58 L 11/03/21 11:15 20 11/03/21 11:13 64 98 11/03/21 11:08 59 L 96 11/03/21 11:03 61 97 11/03/21 11:00 60 101/57 L 11/03/21 10:58 64 98 11/03/21 10:53 61 98 11/03/21 10:48 66 97 11/03/21 10:46 75 99/59 L 11/03/21 10:45 18 11/03/21 10:43 71 97 11/03/21 10:38 89 97 11/03/21 10:33 66 97 11/03/21 10:32 63 115/72 11/03/21 10:31 18 11/03/21 10:28 60 96 11/03/21 10:23 62 98 11/03/21 10:18 63 97 11/03/21 10:15 59 L 18 99/65 L 11/03/21 10:13 59 L 95 11/03/21 10:08 66 97 11/03/21 10:03 63 97 11/03/21 10:01 20 11/03/21 10:00 59 L 102/67 11/03/21 09:58 59 L 96 11/03/21 09:53 68 95 11/03/21 09:48 64 97 11/03/21 09:46 59 L 106/67 11/03/21 09:45 20 11/03/21 09:43 63 97 11/03/21 09:38 71 96 11/03/21 09:33 63 97 11/03/21 09:31 61 108/61 11/03/21 09:28 67 97 11/03/21 09:26 98.6 F 20 04/01/22 09:23 65 97 11/03/21 09:18 67 96 11/03/21 09:16 63 106/67 11/03/21 09:15 20 11/03/21 09:13 61 98 11/03/21 09:08 62 96 11/03/21 09:03 65 98 11/03/21 09:02 62 106/69 11/03/21 09:01 20 11/03/21 08:58 61 95 11/03/21 08:53 64 96 11/03/21 08:48 63 96 11/03/21 08:46 63 111/77 11/03/21 08:45 20 11/03/21 08:43 69 97 11/03/21 08:38 84 97 11/03/21 08:33 81 100 11/03/21 08:31 83 20 103/63 11/03/21 08:28 70 99 11/03/21 08:23 72 97 11/03/21 08:18 75 96 11/03/21 08:17 76 101/62 11/03/21 08:15 20 11/03/21 08:13 84 98 11/03/21 08:08 90 99 11/03/21 08:03 84 97 11/03/21 08:01 20 11/03/21 08:00 78 118/76 11/03/21 07:58 80 98 11/03/21 07:53 71 97 11/03/21 07:48 68 98 11/03/21 07:45 98.2 F 67 20 114/71 11/03/21 07:43 74 98 11/03/21 07:38 72 98 11/03/21 07:33 84 98 11/03/21 07:31 85 20 119/70 11/03/21 07:28 77 99 11/03/21 07:23 88 97 11/03/21 07:22 85 131/69 11/03/21 07:18 86 99 11/03/21 07:15 20 11/03/21 07:13 76 97 11/03/21 07:08 70 97 11/03/21 07:03 78 97 11/03/21 07:01 68 107/70 11/03/21 06:58 70 97 11/03/21 06:53 84 97 11/03/21 06:48 88 98 11/03/21 06:46 78 107/66 04/01/22 06:43 103 H 96 Coding Level of Care Code None Diagnoses Insulin controlled gestational diabetes mellitus (GDM) during O24.414 Obesity E66.9
--- NOTE | 2021-11-03 20:45 | Labor Progress Brief Note ---
Date of Service November 03, 2021 Subjective pt comfortable Assessment & Plan (1) Supervision of normal intrauterine in primigravida: (2) Insulin controlled gestational diabetes mellitus (GDM) during : (3) Obesity: Plan: cont with pit. making cx change. fhts categ 1. Admission and Anticipated Discharge Date Admission Date: November 02, 2021 Physical Exam Constitutional: WD/WN, vitals as above Genitourinary: Manual OB Exam: + cervical dilation 7 cm, + cervical effacement 100% and + station 0 OB Exam Monitor Tracing: + external FHT monitor used, + intra-uterine pressure catheter used (mvu's inadeq, pit at 34, q2min), + category I and + normal FHT variability Results & Data ([facility]) Vital Signs (Past 12 Hours) Vital Signs Temp Pulse Resp BP Pulse Ox 11/03/21 20:38 97 H 97 11/03/21 20:33 95 H 98 11/03/21 20:31 95 H 122/73 11/03/21 20:28 97 H 100 11/03/21 20:23 101 H 99 11/03/21 20:20 82 115/62 11/03/21 20:18 84 99 11/03/21 20:13 70 97 11/03/21 20:08 71 97 11/03/21 20:03 72 96 11/03/21 20:01 75 109/72 11/03/21 19:58 74 97 11/03/21 19:53 76 97 11/03/21 19:48 82 97 11/03/21 19:43 81 98 11/03/21 19:38 85 98 11/03/21 19:33 86 96 11/03/21 19:30 98.6 F 80 16 124/74 11/03/21 19:28 88 97 11/03/21 19:23 78 98 11/03/21 19:18 85 99 11/03/21 19:15 82 16 125/78 11/03/21 19:13 83 97 11/03/21 19:08 79 96 11/03/21 19:03 86 98 11/03/21 19:02 80 118/69 11/03/21 18:58 84 96 11/03/21 18:53 93 H 98 11/03/21 18:48 88 98 11/03/21 18:45 87 115/71 04/22 18:43 101 H 99 11/03/21 18:38 93 H 99 11/03/21 18:33 94 H 98 11/03/21 18:32 92 H 121/72 11/03/21 18:28 103 H 100 11/03/21 18:26 98.4 F 11/03/21 18:23 104 H 98 11/03/21 18:18 84 100 11/03/21 18:15 76 103/57 L 11/03/21 18:13 90 98 11/03/21 18:08 95 H 100 11/03/21 18:03 88 99 11/03/21 18:01 83 20 103/55 L 11/03/21 17:58 84 100 11/03/21 17:53 82 100 11/03/21 17:48 85 100 11/03/21 17:45 84 100/58 L 11/03/21 17:43 73 98 11/03/21 17:38 73 99 11/03/21 17:33 79 99 11/03/21 17:31 74 20 106/55 L 11/03/21 17:28 73 99 11/03/21 17:23 75 98 11/03/21 17:18 93 H 99 11/03/21 17:17 69 113/56 L 11/03/21 17:13 72 97 11/03/21 17:08 66 97 11/03/21 17:03 70 99 11/03/21 17:01 65 106/56 L 11/03/21 16:58 78 99 11/03/21 16:53 73 99 11/03/21 16:48 70 99 11/03/21 16:46 67 110/61 11/03/21 16:43 77 98 11/03/21 16:38 69 97 11/03/21 16:33 75 97 11/03/21 16:31 98.4 F 71 20 121/75 11/03/21 16:28 71 97 11/03/21 16:23 71 99 11/03/21 16:18 76 98 11/03/21 16:16 75 115/75 11/03/21 16:13 75 99 11/03/21 16:08 76 98 11/03/21 16:03 74 98 11/03/21 16:01 20 11/03/21 16:00 71 114/74 11/03/21 15:58 69 98 11/03/21 15:53 67 99 11/03/21 15:48 75 99 11/03/21 15:46 68 116/71 11/03/21 15:43 70 99 11/03/21 15:38 78 97 11/03/21 15:33 86 97 11/03/21 15:32 89 122/67 11/03/21 15:31 20 11/03/21 15:28 82 98 11/03/21 15:23 65 98 11/03/21 15:18 67 98 11/03/21 15:17 67 90/54 L 11/03/21 15:13 68 98 11/03/21 15:08 63 99 11/03/21 15:03 72 100 11/03/21 15:02 71 103/58 L 11/03/21 15:01 18 11/03/21 14:58 69 100 11/03/21 14:53 74 100 11/03/21 14:48 73 100 11/03/21 14:46 68 104/60 11/03/21 14:43 69 100 11/03/21 14:38 71 100 11/03/21 14:33 72 100 11/03/21 14:31 98.2 F 82 20 123/69 11/03/21 14:28 81 100 11/03/21 14:23 94 H 100 11/03/21 14:18 94 H 99 11/03/21 14:15 83 117/76 11/03/21 14:13 81 100 11/03/21 14:08 98 H 100 11/03/21 14:03 91 H 100 11/03/21 14:02 79 105/62 11/03/21 13:58 84 99 11/03/21 13:53 84 100 11/03/21 13:48 85 99 11/03/21 13:47 84 118/75 11/03/21 13:43 87 99 11/03/21 13:38 84 100 11/03/21 13:33 97 H 99 11/03/21 13:31 93 H 20 128/79 11/03/21 13:30 98.2 F 11/03/21 13:28 93 H 98 11/03/21 13:23 93 H 99 11/03/21 13:18 90 100 11/03/21 13:16 83 111/74 11/03/21 13:13 89 99 11/03/21 13:08 83 98 11/03/21 13:03 88 97 11/03/21 13:02 98 H 123/77 11/03/21 13:01 20 11/03/21 12:58 94 H 97 11/03/21 12:53 96 H 97 11/03/21 12:48 95 H 98 11/03/21 12:45 83 114/69 11/03/21 12:43 87 99 11/03/21 12:38 79 100 11/03/21 12:33 79 100 11/03/21 12:31 20 11/03/21 12:30 74 110/63 11/03/21 12:28 74 100 11/03/21 12:23 72 100 11/03/21 12:18 71 100 11/03/21 12:17 67 111/59 L 11/03/21 12:13 65 99 11/03/21 12:08 65 99 11/03/21 12:03 73 99 11/03/21 12:01 68 20 111/61 11/03/21 11:58 71 99 11/03/21 11:53 72 99 11/03/21 11:48 70 98 11/03/21 11:47 72 100/56 L 11/03/21 11:45 20 11/03/21 11:43 79 98 11/03/21 11:38 66 98 11/03/21 11:33 61 96 11/03/21 11:31 98.4 F 67 20 112/59 L 11/03/21 11:28 69 99 11/03/21 11:23 67 97 11/03/21 11:18 60 97 11/03/21 11:16 63 112/58 L 11/03/21 11:15 20 11/03/21 11:13 64 98 11/03/21 11:08 59 L 96 11/03/21 11:03 61 97 11/03/21 11:00 60 101/57 L 11/03/21 10:58 64 98 11/03/21 10:53 61 98 11/03/21 10:48 66 97 11/03/21 10:46 75 99/59 L 11/03/21 10:45 18 11/03/21 10:43 71 97 11/03/21 10:38 89 97 11/03/21 10:33 66 97 11/03/21 10:32 63 115/72 11/03/21 10:31 18 11/03/21 10:28 60 96 11/03/21 10:23 62 98 11/03/21 10:18 63 97 11/03/21 10:15 59 L 18 99/65 L 11/03/21 10:13 59 L 95 11/03/21 10:08 66 97 11/03/21 10:03 63 97 11/03/21 10:01 20 11/03/21 10:00 59 L 102/67 11/03/21 09:58 59 L 96 11/03/21 09:53 68 95 11/03/21 09:48 64 97 11/03/21 09:46 59 L 106/67 11/03/21 09:45 20 11/03/21 09:43 63 97 11/03/21 09:38 71 96 11/03/21 09:33 63 97 11/03/21 09:31 61 108/61 11/03/21 09:28 67 97 11/03/21 09:26 98.6 F 20 11/03/21 09:23 65 97 11/03/21 09:18 67 96 11/03/21 09:16 63 106/67 11/03/21 09:15 20 11/03/21 09:13 61 98 11/03/21 09:08 62 96 11/03/21 09:03 65 98 11/03/21 09:02 62 106/69 11/03/21 09:01 20 11/03/21 08:58 61 95 11/03/21 08:53 64 96 11/03/21 08:48 63 96 11/03/21 08:46 63 111/77 11/03/21 08:45 20 Coding Level of Care Code None Diagnoses Supervision of normal intrauterine in primigravida Z34.00 Insulin controlled gestational diabetes mellitus (GDM) during O24.414 Obesity E66.9
--- NOTE | 2021-11-03 23:29 | Labor Progress Brief Note ---
Date of Service November 03, 2021 Subjective comfortable Assessment & Plan (1) Insulin controlled gestational diabetes mellitus (GDM) during : Plan: good cx change. will keep pit at 40. given cx change as well as max dose of pit. fhts categ 1. reeval in 1-2hr to begin 2nd stage. Admission and Anticipated Discharge Date Admission Date: November 02, 2021 Physical Exam Constitutional: WD/WN, vitals as above Genitourinary: Manual OB Exam: + cervical dilation 9 cm, + cervical effacement 100% and + station 0 OB Exam Monitor Tracing: + external FHT monitor used, + intra-uterine pressure catheter used (q2, pit at 40 mvus inadeq ), + category I and + normal FHT variability Results & Data ([facility]) Vital Signs (Past 12 Hours) Vital Signs Temp Pulse Resp BP Pulse Ox Pulse Ox 11/03/21 23:23 97 H 97 11/03/21 23:18 89 97 11/03/21 23:15 86 109/73 11/03/21 23:13 96 H 97 11/03/21 23:08 77 96 11/03/21 23:03 79 95 11/03/21 23:01 81 102/63 11/03/21 22:58 77 95 11/03/21 22:53 76 95 11/03/21 22:48 76 96 11/03/21 22:46 76 105/63 11/03/21 22:43 74 97 11/03/21 22:40 98 11/03/21 22:38 89 98 11/03/21 22:33 101 H 98 11/03/21 22:30 101 H 110/74 11/03/21 22:29 98.2 F 16 11/03/21 22:28 102 H 98 11/03/21 22:23 101 H 99 11/03/21 22:18 84 96 11/03/21 22:16 85 110/80 11/03/21 22:13 81 98 11/03/21 22:08 81 97 11/03/21 22:03 90 99 11/03/21 22:02 85 115/70 11/03/21 21:58 82 99 11/03/21 21:53 80 99 11/03/21 21:48 77 97 11/03/21 21:46 73 107/66 04/01/22 21:43 81 98 11/03/21 21:38 72 96 11/03/21 21:33 70 99 11/03/21 21:30 71 116/66 11/03/21 21:28 76 98 11/03/21 21:23 81 98 11/03/21 21:22 98.6 F 16 11/03/21 21:18 87 97 11/03/21 21:16 83 112/57 L 11/03/21 21:13 84 98 11/03/21 21:08 79 98 11/03/21 21:03 81 97 11/03/21 21:01 83 113/59 L 11/03/21 20:58 77 98 11/03/21 20:53 86 98 11/03/21 20:48 86 98 11/03/21 20:46 85 115/64 11/03/21 20:43 90 97 11/03/21 20:38 97 H 97 11/03/21 20:33 95 H 98 11/03/21 20:31 95 H 122/73 11/03/21 20:28 97 H 100 11/03/21 20:23 101 H 99 11/03/21 20:20 82 115/62 11/03/21 20:18 84 99 11/03/21 20:13 70 97 11/03/21 20:08 71 97 11/03/21 20:03 72 96 11/03/21 20:01 75 109/72 11/03/21 19:58 74 97 11/03/21 19:53 76 97 11/03/21 19:48 82 97 11/03/21 19:43 81 98 11/03/21 19:38 85 98 11/03/21 19:33 86 96 11/03/21 19:30 98.6 F 80 16 124/74 11/03/21 19:28 88 97 11/03/21 19:23 78 98 11/03/21 19:18 85 99 11/03/21 19:15 82 16 125/78 11/03/21 19:13 83 97 11/03/21 19:08 79 96 11/03/21 19:03 86 98 11/03/21 19:02 80 118/69 11/03/21 18:58 84 96 11/03/21 18:53 93 H 98 11/03/21 18:48 88 98 11/03/21 18:45 87 115/71 11/03/21 18:43 101 H 99 11/03/21 18:38 93 H 99 11/03/21 18:33 94 H 98 11/03/21 18:32 92 H 121/72 11/03/21 18:28 103 H 100 11/03/21 18:26 98.4 F 11/03/21 18:23 104 H 98 11/03/21 18:18 84 100 11/03/21 18:15 76 103/57 L 11/03/21 18:13 90 98 11/03/21 18:08 95 H 100 11/03/21 18:03 88 99 11/03/21 18:01 83 20 103/55 L 11/03/21 17:58 84 100 11/03/21 17:53 82 100 11/03/21 17:48 85 100 11/03/21 17:45 84 100/58 L 11/03/21 17:43 73 98 11/03/21 17:38 73 99 11/03/21 17:33 79 99 11/03/21 17:31 74 20 106/55 L 11/03/21 17:28 73 99 11/03/21 17:23 75 98 11/03/21 17:18 93 H 99 11/03/21 17:17 69 113/56 L 11/03/21 17:13 72 97 11/03/21 17:08 66 97 11/03/21 17:03 70 99 11/03/21 17:01 65 106/56 L 11/03/21 16:58 78 99 11/03/21 16:53 73 99 11/03/21 16:48 70 99 11/03/21 16:46 67 110/61 11/03/21 16:43 77 98 11/03/21 16:38 69 97 11/03/21 16:33 75 97 11/03/21 16:31 98.4 F 71 20 121/75 11/03/21 16:28 71 97 11/03/21 16:23 71 99 11/03/21 16:18 76 98 11/03/21 16:16 75 115/75 11/03/21 16:13 75 99 11/03/21 16:08 76 98 11/03/21 16:03 74 98 11/03/21 16:01 20 11/03/21 16:00 71 114/74 11/03/21 15:58 69 98 11/03/21 15:53 67 99 11/03/21 15:48 75 99 11/03/21 15:46 68 116/71 11/03/21 15:43 70 99 11/03/21 15:38 78 97 11/03/21 15:33 86 97 11/03/21 15:32 89 122/67 11/03/21 15:31 20 11/03/21 15:28 82 98 11/03/21 15:23 65 98 11/03/21 15:18 67 98 11/03/21 15:17 67 90/54 L 11/03/21 15:13 68 98 11/03/21 15:08 63 99 11/03/21 15:03 72 100 11/03/21 15:02 71 103/58 L 11/03/21 15:01 18 11/03/21 14:58 69 100 11/03/21 14:53 74 100 11/03/21 14:48 73 100 11/03/21 14:46 68 104/60 11/03/21 14:43 69 100 11/03/21 14:38 71 100 11/03/21 14:33 72 100 11/03/21 14:31 98.2 F 82 20 123/69 11/03/21 14:28 81 100 11/03/21 14:23 94 H 100 11/03/21 14:18 94 H 99 11/03/21 14:15 83 117/76 11/03/21 14:13 81 100 11/03/21 14:08 98 H 100 11/03/21 14:03 91 H 100 11/03/21 14:02 79 105/62 11/03/21 13:58 84 99 11/03/21 13:53 84 100 11/03/21 13:48 85 99 11/03/21 13:47 84 118/75 11/03/21 13:43 87 99 11/03/21 13:38 84 100 11/03/21 13:33 97 H 99 11/03/21 13:31 93 H 20 128/79 11/03/21 13:30 98.2 F 11/03/21 13:28 93 H 98 11/03/21 13:23 93 H 99 11/03/21 13:18 90 100 11/03/21 13:16 83 111/74 11/03/21 13:13 89 99 11/03/21 13:08 83 98 11/03/21 13:03 88 97 11/03/21 13:02 98 H 123/77 11/03/21 13:01 20 11/03/21 12:58 94 H 97 11/03/21 12:53 96 H 97 11/03/21 12:48 95 H 98 11/03/21 12:45 83 114/69 11/03/21 12:43 87 99 11/03/21 12:38 79 100 11/03/21 12:33 79 100 11/03/21 12:31 20 11/03/21 12:30 74 110/63 11/03/21 12:28 74 100 11/03/21 12:23 72 100 11/03/21 12:18 71 100 11/03/21 12:17 67 111/59 L 11/03/21 12:13 65 99 11/03/21 12:08 65 99 11/03/21 12:03 73 99 11/03/21 12:01 68 20 111/61 11/03/21 11:58 71 99 11/03/21 11:53 72 99 11/03/21 11:48 70 98 11/03/21 11:47 72 100/56 L 11/03/21 11:45 20 11/03/21 11:43 79 98 11/03/21 11:38 66 98 11/03/21 11:33 61 96 11/03/21 11:31 98.4 F 67 20 112/59 L 11/03/21 11:28 69 99 Coding Level of Care Code None Diagnoses Insulin controlled gestational diabetes mellitus (GDM) during O24.414
[2021-11-03] MEDS ORDERED: diphenhydrAMINE 50 MG/ML VIAL IV PRN (23:40)
[2021-11-03] MEDS ORDERED: NALOXONE HCL 0.4 MG/1 ML VIAL/CARP IV PRN (23:40)
[2021-11-03] MEDS ORDERED: ONDANSETRON INJ 2 MG/ML 2 ML VIAL IV PRN (23:40)
[2021-11-03] MEDS ORDERED: NALOXONE HCL 1 MG in SODIUM CHLORIDE 0.9% 1000ML 1,000 ML IV PRN (23:40)
[2021-11-03] MEDS ORDERED: ePHEDrine sulfate 50 MG/ML AMP IV PRN (23:40)
[2021-11-03] MEDS ORDERED: NALBUPHINE HCL INJ 10 MG/ML AMP IV PRN (23:40)
[2021-11-04] MEDS: LACTATED RINGER'S 1,000 ML IV PRN ×2 (00:37→05:25)
[2021-11-04] MEDS: OXYTOCIN 30 UNITS/500 ML BAG IV PRN (01:49)
[2021-11-04] MEDS: fentaNYL 2MCG/ML ROPIVACAINE 1.25MG/ML 100 ML BAG EPI PRN ×2 (02:33→07:49)
[2021-11-04] MEDS ORDERED: BUPIVACAINE 0.25% 30 ML VIAL ONE (03:25)
[2021-11-04] MEDS ORDERED: miSOPROStoL 200 MCG TAB ONE (07:59)
[2021-11-04] MEDS ORDERED: LIDOCAINE 1% LOCAL 20 ML VIAL ONE (08:06)
--- NOTE | 2021-11-04 08:44 | Delivery Summary ---
Vaginal Delivery Summary Date of Service November 04, 2021 Vaginal Delivery Summary and 2nd Degree LAC The patient dilated to complete and pushed to deliver a viable female infant Apgars 8 and 9 via over 2nd degree perineal laceration. Mouth and nose bulb suctioned at perineum. Shoulders and body delivered with ease. Infant was not vigorous and crying at so cord rapidly doubly clamped and cut on maternal abdomen and infant to warmer for attention. On arrival to warmer with baby, baby crying. Thick mec noted and foul smelling fluid. Laceration repaired in routine fashion with 3-0 vicryl after 1% local lidocaine anesthesia. Placenta not delivered spontaneously and at about 15min pp with traction cord avulsed and so manual extraction of placenta took place. Extra sweep of uterus with no evidence of retained products. Hemostasis not achieved with dilute pitocin and uterine massage and drainage of the bladder for approximately 150 cc under sterile conditions. Therefore rectal cytotec 800mcg given and IM methergine given after notation of bp. Uterine tone improving but in the process bimanual massage and additional removal of clots from uterus undertaken. Cervix and sulci intact. EBL 500 cc. Mother and baby stable in recovery. Due to sweeping of uterus x multiple, iv abx x 3 doses planned. [facility] Vaginal Delivery Charge Delivery Type Details: and 2nd Degree LAC
[2021-11-04] MEDS ORDERED: ceFAZolin 1000MG 1,000 MG/7.5 ML SYR IV SCH (08:45)
[2021-11-04] MEDS ORDERED: IBUPROFEN 600 MG TAB PO ONE (08:59)
[2021-11-04] MEDS ORDERED: METHYLERGONOVINE MALEATE 0.2 MG/ML AMP ONE (09:12)
[2021-11-04] MEDS ORDERED: DIPHTHERIA/TETANUS/PERTUSSIS 0.5 ML SYR/VIAL IM ONE (09:32)
[2021-11-04] MEDS ORDERED: oxyCODONE/ACETAMINOPHEN 5mg/325mg TAB PO PRN (09:32)
[2021-11-04] MEDS ORDERED: METHYLERGONOVINE MALEATE 0.2 MG/ML AMP IM ONE (09:32)
[2021-11-04] MEDS ORDERED: ACETAMINOPHEN 325 MG TAB PO PRN (09:32)
[2021-11-04] MEDS ORDERED: miSOPROStoL 200 MCG TAB PR ONE (09:32)
[2021-11-04] MEDS ORDERED: bisacodyL 10 MG SUPP PR PRN (09:32)
[2021-11-04] MEDS ORDERED: HYDROCORTISONE ACETATE 25 MG SUPP PR PRN (09:32)
[2021-11-04] MEDS ORDERED: OXYTOCIN 30 UNITS/500 ML BAG IV PRN (09:32)
[2021-11-04] MEDS ORDERED: BENZOCAINE 20% AER SPR 82.5 GM CAN EXT PRN (09:32)
--- NOTE | 2021-11-04 09:39 | Anesthesia Procedure Note ---
Date of Service November 04, 2021 Anesthesia Post Epidural Note Vital Signs Vital Signs: Temp Pulse Resp BP Pulse Ox 37.2 C 79 16 119/61 100 11/04/21 05:42 11/04/21 09:31 11/04/21 05:42 11/04/21 09:31 11/04/21 08:38 Pain Intensity Right Lower Abdomen: Pain Intensity: 8 Bilateral Back: Pain Intensity: 8 Notes Mental Status: alert / awake / arousable Nausea / Vomiting: adequately controlled Pain: adequately controlled Airway Patency, RR, SpO2: stable & adequate BP & HR: stable & adequate Hydration State: stable & adequate Neuraxial Anesthesia: was administered and sensory block is resolving Anesthetic Complications: no major complications apparent Epidural: Removed without complications and With tip intact
[2021-11-04] MEDS ORDERED: OXYTOCIN 20 UNITS in LACTATED RINGER'S 1,000 ML IV SCH (09:45)
[2021-11-04] MEDS: ceFAZolin 2000MG 2,000 MG/15 ML SYR IV SCH ×2 (09:57→17:57)
[2021-11-04] MEDS: DOCUSATE SODIUM 100 MG CAP PO SCH (20:16)
[2021-11-05] MEDS: ceFAZolin 2000MG 2,000 MG/15 ML SYR IV SCH (02:19)
[2021-11-05] MEDS: IBUPROFEN 600 MG TAB PO PRN ×2 (04:46→19:50)
[2021-11-05 06:47] LABS: Hematocrit (blood only) 29.9 % (37-47); Hemoglobin 10.2 g/dL (12.0-16.0); Mean Corpuscular Hgb Conc 34.1 g/dL (32-36); Mean Corpuscular Volume 76.1 fL (80-100); Platelet Count 208 K/uL (130-400); RDW Coefficient of Variation 16.5 % (11.5-14.5); RDW Standard Deviation 45.7 fL (36.4-46.3); Red Blood Count 3.93 M/uL (4.2-5.4); White Blood Count 23.52 K/uL (4.8-10.8)
[2021-11-05] MEDS: DOCUSATE SODIUM 100 MG CAP PO SCH ×2 (08:35→19:50)
[2021-11-05] MEDS: PRENATAL VITAMIN 1 TAB PO SCH (08:35)
--- NOTE | 2021-11-05 08:52 | Obstetrical Progress Note ---
Date of Service November 05, 2021 Assessment & Plan (1) Supervision of normal intrauterine in primigravida: PPD#1 doing well. Continue routine care. Subjective Ambulation: ambulating normally Voiding: no voiding problems Diet Tolerance:: regular diet Lochia:: Moderate Review of Systems All systems reviewed & are unremarkable except as noted in HPI & below Physical Exam Constitutional WD/WN, vitals as above no acute distress Respiratory normal respiratory effort Cardiovascular Rate/Rhythm: regular rate and regular rhythm Gastrointestinal (Abdomen) Inspection/Auscultation: abdomen normal to inspection; abdomen not distended Percussion/Palpation: abdomen soft Genitourinary OB Exam Abdomen: + fundal height Fundus: + firm; not tender Results & Data ([facility]) Vital Signs (Past 12 Hours) Vital Signs Temp Pulse Resp BP Pulse Ox 11/05/21 04:35 36.5 C 72 18 97/62 L 11/04/21 23:45 36.9 C 78 18 91/58 L 97
[2021-11-05] MEDS ORDERED: bisacodyL 5 MG TABEC PO SCH (20:00)
[2021-11-06] MEDS: IBUPROFEN 600 MG TAB PO PRN ×2 (03:43→08:25)
[2021-11-06 06:17] LABS: Hematocrit (blood only) 31.5 % (37-47); Hemoglobin 10.8 g/dL (12.0-16.0)
--- NOTE | 2021-11-06 06:21 | Obstetrical Progress Note ---
Date of Service November 06, 2021 Assessment & Plan (1) Encounter for care and examination after delivery: Plan: 36 yo PPD2 s/p at 40 3/7weeks -Continue routine care -Vitals reviewed- HDS, afebrile -O+, GBS-, Rubella immune -Encourage ambulation, regular diet -Pain control with ibuprofen, acetaminophen PRN -Encourage -D/c today with nesting pending status -F/u in 6 weeks withOB Admission and Anticipated Discharge Date Admission Date: November 02, 2021 Supervising Physician Co-Signing Physician Notes Resident Physician Supervision Note: I interviewed and examined the patient. Discussed with Dr. Sheridan and agree with findings and plan as documented in the note. Any exceptions or clarifications are listed here: [ ] Documented By: Mayra Escobar MD, FACOG Subjective PPD2 s/p . Patient seen and examined at bedside. Reports no acute overnight events. Ambulating and voiding. Passing gas and stool. Regular diet w/o N/V. Lochia small. and supplementing with bottle feeds. Pain 2/10 controlled with NSAIDs as needed. Doing well, only has the complaint of feet swelling. Would feel comfortable with going home pending baby's d/c status. Review of Systems Review of Systems: All systems reviewed & are unremarkable except as noted in HPI & below Physical Exam Physical Exam: General: Alert, oriented, no acute distress Cardiac: Regular rate and rhythm, normal S1, S2. No murmurs appreciated. Respiratory: Clear to auscultation b/l with good air flow entry, symmetric chest rise and fall. No wheezes or crackles. No increased work of breathing or accessory muscle use Abdomen: Soft, nontender, nondistended. Fundus firm and palpable at the level of umbilicus. No guarding or rebound. Skin: No rashes or lesions Extremities: Warm, dry, well-perfused with capillary refill <2s b/l. Mild b/l feet swelling without erythema. Negative Vidhya's sign b/l. Results & Data ([facility]) Vital Signs (Past 12 Hours) Vital Signs Temp Pulse Resp BP 11/06/21 00:00 36.7 C 78 18 128/82 11/05/21 20:00 36.8 C 71 18 126/84
[2021-11-06] MEDS: PRENATAL VITAMIN 1 TAB PO SCH (08:25)
[2021-11-06] MEDS: DOCUSATE SODIUM 100 MG CAP PO SCH (08:28)
--- NOTE | 2021-11-13 13:26 | Coding Query ---
PATHOLOGY To promote full compliance with coding requirements relating to patient care, physician participation is requested in all cases of field interviewer uncertainty. Please assist us with the question(s) below: Please review the Pathology report and please document any relevant diagnosis(es) below: Diagnosis(es): Cord avulsion (I was not present during this) Thank you Fortunato CASTILLO
== END 2021-11-06 14:20 | disposition home or self-care (01) | DRG 807 ==
LOC: 4S1 07:37 → 4E2 11-04 11:00